=== PATIENT | female | born 1975 | race Two or more races ===

== ENCOUNTER 2024-07-09 09:56 | Emergency (ER) | payer BC ==
[~2024-07-09] VITALS: Ht 170.2 cm; Wt 79.8 kg
[2024-07-09 10:02] VITALS: BP 141/88; TEMP 98.1
[2024-07-09] MEDS ORDERED: ERYT3.5O9 RIGHTEYE (10:41)
[2024-07-09] MEDS ORDERED: CLIN300C12 PO (10:41)
[2024-07-09 10:44] VITALS: O2SAT 99
== END 2024-07-09 10:44 | disposition home or self-care (01) ==
LOC: ER 10:14
DX: L03.213 Periorbital cellulitis (principal); I10 Essential (primary) hypertension